=== PATIENT | female | born 1975 | race Hispanic/Latino ===

== ENCOUNTER 2024-11-20 06:48 | Day surgery (SDC) | payer OTHER ==
[2024-11-18 13:19] LABS: Anion Gap 8.8 mEq/L (5.0-15.0); Potassium 3.8 mEq/L (3.5-5.1)
--- NOTE | 2024-11-19 11:28 | EKG ---
Test Date: 2024-11-18 Test Time: 13:46:25 [employer]: UZMA MEASUREMENT RESULTS: Intervals: Rate: 75 NV: 162 QRSD: 90 QT: 386 QTc: 431 [place]: P: 65 NV: 162 QRS: 63 T: 64 INTERPRETIVE STATEMENTS: Normal sinus rhythm Normal ECG No previous ECG available for comparison Electronically Signed On 11-19-24 11:26:01 HOOKER OFF by Jamil Callejas
[2024-11-20] MEDS: Ringers Lactate 1,000 ML IV ONE (06:48)
[2024-11-20] MEDS ORDERED: LIDOCAINE 2% MPF 5 ML VIAL ONE (07:35)
[2024-11-20] MEDS ORDERED: propofoL 200 MG/20 ML VIAL IV ONE (07:35)
[2024-11-20] MEDS ORDERED: LIDOCAINE 1% MPF 5 ML VIAL ONE ×2 (08:53)
[2024-11-20] MEDS: NA CHLORIDE 0.9% 500 ML ONE (08:55)
[2024-11-20 09:19] LABS: Urine Specific Gravity/Preg >1.030 (1.005-1.030)
[2024-11-20 10:04] VITALS: BP 102/59; TEMP 97.2; O2SAT 96
== END 2024-11-20 09:30 | disposition home or self-care (01) ==
LOC: OR 06:48 → EDBD 08:00 → OR 09:30
PROVIDERS: ATTEND Surgery
PROC: 0DB98ZX Excision of Duodenum, Via Natural or Artificial Opening Endoscopic, Diagnostic (ICD-10-PCS; 2024-11-20)
PROC: 0DB78ZX Excision of Stomach, Pylorus, Via Natural or Artificial Opening Endoscopic, Diagnostic (ICD-10-PCS; 2024-11-20)
PROC: 0DB68ZX Excision of Stomach, Via Natural or Artificial Opening Endoscopic, Diagnostic (ICD-10-PCS; 2024-11-20)
PROC: 0DBH8ZX Excision of Cecum, Via Natural or Artificial Opening Endoscopic, Diagnostic (ICD-10-PCS; principal; 2024-11-20 08:00)
PROC: 0DBP8ZX Excision of Rectum, Via Natural or Artificial Opening Endoscopic, Diagnostic (ICD-10-PCS; 2024-11-20 08:00)
DX: Z12.11 Encounter for screening for malignant neoplasm of colon (principal); R10.13 Epigastric pain; K21.9 Gastro-esophageal reflux disease without esophagitis; K29.50 Unspecified chronic gastritis without bleeding; K31.7 Polyp of stomach and duodenum; K63.5 Polyp of colon; K64.8 Other hemorrhoids
CPT/HCPCS: 93005; 80048; 36415; 88312; 81025; 88305; 45380; 43239; 43270; J2704; J2003 ×3; J7120; J7040